=== PATIENT | female | born 1955 | race Caucasian/White ===

== ENCOUNTER 2019-06-01 07:12 | Outpatient (CLI) | payer BC, SELFPAY ==
--- NOTE | 2019-06-01 | US_ITS ---
WS: [id number] RIGHT UPPER QUADRANT ULTRASOUND HISTORY: RUQ PAIN COMPARISON: None available. Liver: 17.0 cm in length. Slightly increased liver size. Poor penetration of the liver may be due to some mild hepatic steatosis. No bile duct dilatation. Gallbladder: Normally distended gallbladder with no stones or wall thickening. CBD: 0.5 cm Pancreas: Poorly visualized. Right kidney: 9.3 cm in length. Normal echogenicity with no mass or hydronephrosis. Aorta and IVC: Unremarkable. No ascites. US/US gall bladder [id number] IMPRESSION: 1. Normal gallbladder. 2. Mild hepatic steatosis and hepatomegaly.
== END 2019-06-01 07:13 | disposition home or self-care (01) ==
LOC: RADOUTREAD 13:09
PROVIDERS: Family Provider Nurse Practitioner Family; Visit Provider Family Medicine
DX: Z76.89 Persons encountering health services in other specified circumstances (principal)

== ENCOUNTER → 2019-11-17 17:00 | Outpatient (BNVA) | payer BC, SELFPAY | PROVIDERS: Family Provider Nurse Practitioner Family; Visit Provider Nurse Practitioner Family | DX: Z12.39 Encounter for other screening for malignant neoplasm of breast (principal); E11.9 Type 2 diabetes mellitus without complications; R29.898 Other symptoms and signs involving the musculoskeletal system; I10 Essential (primary) hypertension; M25.541 Pain in joints of right hand; M25.542 Pain in joints of left hand; K21.9 Gastro-esophageal reflux disease without esophagitis; F41.9 Anxiety disorder, unspecified; F32.9 Major depressive disorder, single episode, unspecified | CPT/HCPCS: 80053; 80061; 81003; 82043; 83036; 84550; 85025; 85651; 86038; 86140; 86431; 87077; 87086; 87186 ==

== ENCOUNTER 2019-12-01 06:00 | Outpatient (RCR) | payer BC, SELFPAY | END 2019-12-08 23:59 | disposition home or self-care (01) | LOC: TOT 06:00 | PROVIDERS: PCP Nurse Practitioner Family; Referring Provider Nurse Practitioner Family; Visit Provider Nurse Practitioner Family | DX: R29.898 Other symptoms and signs involving the musculoskeletal system (principal) | CPT/HCPCS: 97166 ==

== ENCOUNTER 2019-12-09 06:00 | Outpatient (RCR) | payer BC, SELFPAY | END 2020-01-08 23:59 | disposition home or self-care (01) | LOC: TOT 06:00 | PROVIDERS: PCP Nurse Practitioner Family; Referring Provider Nurse Practitioner Family; Visit Provider Nurse Practitioner Family | DX: R29.898 Other symptoms and signs involving the musculoskeletal system (principal) | CPT/HCPCS: 97018; 97035; 97110 ==

== ENCOUNTER 2020-01-03 08:41 | Outpatient (CLI) | payer BC, SELFPAY ==
--- NOTE | 2020-01-03 08:30 | MM_ITS ---
WS: [id number] BILATERAL DIGITAL SCREENING MAMMOGRAPHY WITH CAD CLINICAL INFORMATION: screening mammo; would like in December HISTORY: Screening mammogram. No current complaints. COMPARISON: TECHNIQUE: Bilateral CC and MLO views. FINDINGS: The breasts are composed of heterogeneous fibroglandular density tissue, which can limit the detectio n of small underlying mass lesions. No suspicious mass, asymmetry, calcifications, or architectural d istortion. No evidence of malignancy. MM/[place] [id number] IMPRESSION: BI-RADS: 1-Negative FOLLOW UP: 1 Year Follow-up Recommend return to annual screening mammography.
== END 2020-01-03 08:42 | disposition home or self-care (01) ==
LOC: RADSHAW 08:43
PROVIDERS: PCP Nurse Practitioner Family; Visit Provider Nurse Practitioner Family
DX: Z12.31 Encounter for screening mammogram for malignant neoplasm of breast (principal)
CPT/HCPCS: 77067

== ENCOUNTER 2020-01-09 06:00 | Outpatient (RCR) | payer BC, SELFPAY | END 2020-02-07 23:59 | disposition home or self-care (01) | LOC: TOT 06:00 | PROVIDERS: PCP Nurse Practitioner Family; Referring Provider Nurse Practitioner Family; Visit Provider Nurse Practitioner Family | DX: R29.898 Other symptoms and signs involving the musculoskeletal system (principal) | CPT/HCPCS: 97018; 97035; 97110; L3908 ==

== ENCOUNTER → 2020-08-10 17:26 | Outpatient (BNVA) | payer BC, SELFPAY | PROVIDERS: PCP Nurse Practitioner Family; Visit Provider Nurse Practitioner Family | DX: E11.9 Type 2 diabetes mellitus without complications (principal); M25.50 Pain in unspecified joint; F41.9 Anxiety disorder, unspecified; K21.9 Gastro-esophageal reflux disease without esophagitis; F32.9 Major depressive disorder, single episode, unspecified; I10 Essential (primary) hypertension; Z78.0 Asymptomatic menopausal state | CPT/HCPCS: 80053; 80061; 83036; 84443; 84550; 85025; 85651; 86038; 86140; 86431 ==

== ENCOUNTER → 2021-02-09 09:11 | Outpatient (BNVA) | payer BC, SELFPAY | PROVIDERS: PCP Nurse Practitioner Family; Visit Provider Nurse Practitioner Family | DX: E11.9 Type 2 diabetes mellitus without complications (principal); I10 Essential (primary) hypertension | CPT/HCPCS: 80053; 80061; 83036; 85025 ==

== ENCOUNTER → 2021-06-07 09:59 | Outpatient (BNVA) | payer BC, SELFPAY | PROVIDERS: PCP Nurse Practitioner Family; Visit Provider Nurse Practitioner Family | DX: J10.1 Influenza due to other identified influenza virus with other respiratory manifestations (principal) | CPT/HCPCS: 87400 ==

== ENCOUNTER → 2021-06-25 00:01 | Outpatient (BNVA) | payer OTHER, SELFPAY | PROVIDERS: PCP Nurse Practitioner Family; Visit Provider Nurse Practitioner Family | DX: I10 Essential (primary) hypertension (principal); E11.9 Type 2 diabetes mellitus without complications | CPT/HCPCS: 80053; 80061; 83036; 84443; 85025 ==

== ENCOUNTER → 2021-12-19 08:14 | Outpatient (BNVA) | payer OTHER, SELFPAY | PROVIDERS: PCP Nurse Practitioner Family; Visit Provider Nurse Practitioner Family | DX: E11.9 Type 2 diabetes mellitus without complications (principal); M25.50 Pain in unspecified joint; Z23 Encounter for immunization | CPT/HCPCS: 80053; 80061; 82607; 83036; 83735; 84443; 84550; 85025; 85651; 86038; 86140; 86200; 86431 ==

== ENCOUNTER 2022-02-06 12:42 | Outpatient (CLI) | payer OTHER, SELFPAY ==
--- NOTE | 2022-02-06 12:56 | XR_ITS ---
WS: [id number] SCREENING DEXA SCAN [employer] CLINICAL INFORMATION: Z78.0 - Asymptomatic menopausal state COMPARISON: None. FINDINGS: The L1-L4 bone mineral density measures 1.566 g/cm2. This corresponds to a T score score of 3.2 and Z score of 4.2. Left femoral neck bone mineral density measures 0.945 g/cm2. This corresponds to a T score of -0.5 an d Z score of 0.2. Right femoral neck bone mineral density measures 0.980 g/cm2. This corresponds to a T score -0.2of an d Z score of 0.5. Mean femoral neck bone mineral density measures 0.963 g/cm2. This corresponds to a T score of -0.4 an d Z score of 0.4. XR/XR DEXA axial skeleton* [id number] IMPRESSION: Normal bone mineralization lumbar spine. Normal bone mineralization femoral nec ks. Patient's FRAX calculated 10 year probability for major osteoporotic fracture i s 7.0 % and osteoporotic hip fracture is 0.3%.
--- NOTE | 2022-02-06 13:06 | MM_ITS ---
WS: [id number] BILATERAL 3D TOMOSYNTHESIS DIGITAL SCREENING MAMMOGRAPHY WITH CAD CLINICAL INFORMATION: Z12.31 - Encounter for screening mammogram for malignant ... HISTORY: Screening mammogram. No current complaints. COMPARISON: January 03, 2020 TECHNIQUE: Bilateral CC and MLO views. FINDINGS: The breasts are composed of heterogeneous fibroglandular density tissue, which can limit the detectio n of small underlying mass lesions. No suspicious mass, asymmetry, calcifications, or architectural d istortion. No evidence of malignancy. Incidental punctate calcification LEFT breast. MM/[place] [id number] IMPRESSION: BI-RADS: 2-Benign FOLLOW UP: 1 Year Follow-up Recommend return to annual screening mammography.
== END 2022-02-06 12:43 | disposition home or self-care (01) ==
LOC: RAD 12:43
PROVIDERS: PCP Nurse Practitioner Family; Visit Provider Nurse Practitioner Family
DX: Z12.31 Encounter for screening mammogram for malignant neoplasm of breast (principal); Z78.0 Asymptomatic menopausal state
CPT/HCPCS: 77063; 77067; 77080

== ENCOUNTER → 2022-05-16 11:07 | Outpatient (BNVA) | payer OTHER, SELFPAY | PROVIDERS: PCP Nurse Practitioner Family; Visit Provider Family Medicine | DX: J02.9 Acute pharyngitis, unspecified (principal); H66.93 Otitis media, unspecified, bilateral | CPT/HCPCS: 87071; 87880 ==

== ENCOUNTER → 2022-05-21 08:46 | Outpatient (BNVA) | payer OTHER, SELFPAY | PROVIDERS: PCP Nurse Practitioner Family; Visit Provider Nurse Practitioner Family | DX: Z01.89 Encounter for other specified special examinations (principal) ==

== ENCOUNTER 2022-06-08 13:31 | Emergency (ER) | payer OTHER, SELFPAY ==
[2022-06-08 13:35] VITALS: BP 143/86; PULSE 81; RESP 16; TEMP 36.8; O2SAT 98; BMI 27.1
--- NOTE | 2022-06-08 13:35 | XRR_ITS ---
PROCEDURE INFORMATION: Exam: XR Right Shoulder Exam date and time: 06/08/2022 2:11 PM Age: 66 years old Clinical indication: Injury or trauma; Fall; Blunt trauma (contusions or hematomas); Shoulder; Right; Additional info: Pain TECHNIQUE: Imaging protocol: Radiologic exam of the right shoulder. Views: 2 or more views. COMPARISON: No relevant prior studies available. FINDINGS: Bones/joints: Normal. Soft tissues: Normal. XR/XR shoulder RT min 2V* [id number] IMPRESSION: No acute findings.
--- NOTE | 2022-06-08 13:35 | XRR_ITS ---
PROCEDURE INFORMATION: Exam: XR Cervical Spine Exam date and time: 06/08/2022 2:11 PM Age: 66 years old Clinical indication: Injury or trauma; Fall; Blunt trauma; Additional info: Neck pain TECHNIQUE: Imaging protocol: Radiologic exam of the cervical spine. Views: 2 or 3 views. COMPARISON: No relevant prior studies available. FINDINGS: Bones/joints: There are degenerative changes throughout the visualized spine including marginal osteophyte formations, endplate degenerative changes, and facet arthropathy. Multilevel disc space narrowing. There is straightening of the usual cervical lordosis. Soft tissues: Unremarkable. XR/XR cervical spine 3V* [id number] IMPRESSION: 1. There are degenerative changes as described above. No evidence for acute fracture. 2. Straightening of the usual cervical lordosis. This may be positional in nature however can be seen with muscle spasm as well.
--- NOTE | 2022-06-08 13:35 | CTR_ITS ---
PROCEDURE INFORMATION: Exam: CT Head Without Contrast Exam date and time: 06/08/2022 2:26 PM Age: 66 years old Clinical indication: Injury or trauma; Fall; Blunt trauma (contusions or hematomas); Additional info: Fall/trauma TECHNIQUE: Imaging protocol: Computed tomography of the head without contrast. Radiation optimization: All CT scans at this facility use at least one of these dose optimization techniques: automated exposure control; mA and/or kV adjustment per patient size (includes targeted exams where dose is matched to clinical indication); or iterative reconstruction. REPORTING DATA: Count of CT and Cardiac NM exams in prior 12 months: This patient has received 0 known CTs and 0 known cardiac nuclear medicine studies in the 12 months prior to the current study. COMPARISON: CR (NECK, ) 06/08/2022 2:11 PM RADIATION DOSE METRICS: Total DLP (mGy-cm): 1059.48 FINDINGS: Brain: Periventricular and subcortical white matter low densities are present which at this age likely represent microvascular ischemic change. No evidence for large acute ischemic infarction. Please note acute ischemia can be occult by head CT. No evidence for acute intracranial hemorrhage. Cerebral ventricles: No ventriculomegaly. Paranasal sinuses: There is mucosal thickening of the ethmoid air cells. Small air-fluid levels are seen in the visualized maxillary sinuses. Mastoid air cells: Visualized mastoid air cells are well aerated. Bones/joints: Unremarkable. No acute fracture. Soft tissues: Right frontal soft tissue hematoma. CT/CT head wo con* [id number] IMPRESSION: 1. Right frontal soft tissue hematoma. No evidence for acute intracranial injury. 2. Periventricular and subcortical white matter low densities are present which at this age likely represent microvascular ischemic change. No evidence for acute ischemic infarction.
[2022-06-08 14:08] LABS: Basophils % 0.2 %; Eosinophils % 0.3 %; Hematocrit 36.5 % (37.0-47.0); Hemoglobin 12.3 g/dL (11.5-15.3); Lymphocytes # 1.1 10^3/uL (0.8-4.8); Lymphocytes % 16.8 %; Mean Corpuscular HGB Conc 33.7 g/dL (30.0-36.0); Mean Corpuscular Hemoglobin 30.8 pg (28.0-34.0); Mean Corpuscular Volume 91.3 fl (81-99); Mean Platelet Volume 9.6 fL (7.4-10.4); Monocytes # 0.7 10^3/uL (0.2-0.9); Monocytes % 10.6 %; Neutrophils # 4.52 10^3/uL (1.8-7.7); Neutrophils % 71.8 %; Nucleated Red Blood Cells % 0 %; Platelet Count 277 10^3/cmm (130-400); Red Cell Distribution Width 12.8 % (12.1-15.1); White Blood Count 6.3 10^3/uL (4.0-10.0)
--- NOTE | 2022-06-08 14:16 | W.ED.FALL ---
HPI - Fall General: Chief Complaint: Fall Stated Complaint: RIGHT SIDED PAIN S/P FALL Time Seen by Provider: 06/08/22 13:33 Source: patient Mode of arrival: EMS History of Present Illness: 66-year-old female presents emergency room with complaints of having had a fall. She fell at home she complaining of neck pain and head pain. Patient is unsure whether or not she passed out. She has an abrasion and some swelling in the right frontal area. She is has a c-collar in place she does not use any anticoagulants. Mechanical ground-level fall when she tripped on some slippers. She is also complaining of some right shoulder pain. No obvious deformity. MD complaint: fall Onset (ago): minute(s) Fall from: standing Fall witnessed: yes, by family Place fall occurred: home Loss of consciousness: Unsure Prolonged down time: no Symptoms prior to fall: none Context: tripped/slipped Location of injury: head and neck Location of injury - extremities: Right: shoulder Severity: mild Associated symptoms-after fall: Denies abdominal pain, chest pain, confusion, difficulty walking, headache(s), hematuria, lightheadedness, neck pain, numbness, short of breath, vertigo or weakness Review of Systems Const: Denies: fever(s), chills, body aches, change in appetite, fatigue or malaise Card: Denies: chest pain, palpitations, irregular heart rhythm or lightheadedness Resp: Denies: dyspnea, productive cough or non-productive cough GI: Denies: abdominal pain : Denies: hematuria Musc: Denies: neck pain Skin/Breast: Denies: rash or pruritus Neuro: Denies: headache(s), difficulty walking, vertigo or confusion PFSH ED PFSH: Medical History Hyperlipidemia Hypertension Metabolic syndrome NSAID long-term use Osteoarthritis Osteoarthritis of hands, bilateral Type 2 diabetes mellitus Surgical History History of partial hysterectomy Hx of total knee replacement bilateral Family History Mother Cancer Family/Other Diabetes Hypertension Social History Smoking and tobacco status: former smoker (50 years ago) Second hand smoke exposure: No Smoking risk assessment/counseling performed?: No Alcohol intake: never Desire information about alcohol rehabilitation?: No Counseling given: No Desire information about substance/drug rehabilitation?: No Counseling given: No Adopted: No Caregiver/support person: No Lives independently: Yes Household members: spouse Housing: House Marital status: service: No Current occupational status: employed 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 Resp: COMMON NORMALS: normal respiratory effort, No retractions, No use of accessory muscles and clear to auscultation bilaterally AUSCULTATION: clear to auscultation bilaterally Cardio: COMMON NORMALS: regular rate, regular rhythm and No murmurs present (Cardio) RATE: regular rate RHYTHM: regular rhythm GI: COMMON NORMALS: Soft to palpation and No hepatosplenomegaly present AUSCULTATION: Yes normoactive bowel sounds PALPATION: Yes Soft to palpation, No Tenderness to palpation present (GI), No Guarding due to palpation present (GI) and Yes No hepatosplenomegaly present Extremity: COMMON NORMALS: normal to inspection, capillary refill normal, no clubbing, cyanosis or edema, no calf tenderness and no pedal edema Neuro: SENSORIUM/ORIENTATION: Yes oriented to person, Yes oriented to place and Yes oriented to time Skin: COMMON NORMALS: no rashes or lesions noted GENERAL SKIN EXAM: no rashes or lesions noted Course Vital Signs: Vital signs: Vital Signs Temperature 98.2 F 06/08/22 13:35 Pulse Rate 76 06/08/22 14:47 Respiratory Rate 16 06/08/22 13:35 Blood Pressure 143/86 06/08/22 13:35 Pulse Oximetry 100 06/08/22 14:47 Oxygen Delivery Me thod 06/08/22 13:35 MDM - Fall Medical Decision Making Labs and imaging reviewed no fractures no acute intracranial bleed discharge patient home anti-inflammatories as needed use tizanidine and lieu of cyclobenzaprine. Recheck with primary care if not improving. Anticipate will have increased discomfort from the fall tomorrow. Medical Records I reviewed the patient's medical records. Lab Data I reviewed the patient's lab results. 06/08/22 13:40 06/08/22 13:40 Radiology Impressions Cervical Spine X-Ray 06/08/22 13:35 IMPRESSION: 1. There are degenerative changes as described above. No evidence for acute fracture. 2. Straightening of the usual cervical lordosis. This may be positional in nature however can be seen with muscle spasm as well. Head CT 06/08/22 13:35 IMPRESSION: 1. Right frontal soft tissue hematoma. No evidence for acute intracranial injury. 2. Periventricular and subcortical white matter low densities are present which at this age likely represent microvascular ischemic change. No evidence for acute ischemic infarction. Shoulder X-Ray 06/08/22 13:35 IMPRESSION: No acute findings. Laboratory Results WBC 6.3 10^3/uL (4.0-10.0) 06/08/22 13:40 RBC 4.00 10^6/uL (4.1-5.3) L 06/08/22 13:40 Hgb 12.3 g/dL (11.5-15.3) 06/08/22 13:40 Hct 36.5 % (37.0-47.0) L 06/08/22 13:40 MCV 91.3 fl (81-99) 06/08/22 13:40 MCH 30.8 pg (28.0-34.0) 06/08/22 13:40 MCHC 33.7 g/dL (30.0-36.0) 06/08/22 13:40 RDW 12.8 % (12.1-15.1) 06/08/22 13:40 Plt Count 277 10^3/cmm (130-400) 06/08/22 13:40 MPV 9.6 fL (7.4-10.4) 06/08/22 13:40 Neut % (Auto) 71.8 % 06/08/22 13:40 Lymph % (Auto) 16.8 % 06/08/22 13:40 Briscoe % (Auto) 10.6 % 06/08/22 13:40 Eos % (Auto) 0.3 % 06/08/22 13:40 Baso % (Auto) 0.2 % 06/08/22 13:40 Neut # (Auto) 4.52 10^3/uL (1.8-7.7) 06/08/22 13:40 Lymph # (Auto) 1.1 10^3/uL (0.8-4.8) 06/08/22 13:40 [place]iscoe # (Auto) 0.7 10^3/uL (0.2-0.9) 06/08/22 13:40 Eos # (Auto) 0.0 10^3/uL (0.0-0.8) 06/08/22 13:40 Baso # (Auto) 0.0 10^3/uL (0.0-0.1) 06/08/22 13:40 Nucleated RBC % (auto) 0 % 06/08/22 13:40 Nucleated RBCs # 0.0 /100WBC 06/08/22 13:40 Sodium 134 mmol/L (136-145) L 06/08/22 13:40 Potassium 3.3 mmol/L (3.5-5.1) L 06/08/22 13:40 Chloride 95 mmol/L (98-107) L 06/08/22 13:40 Carbon Dioxide 27 mmol/L (22-29) 06/08/22 13:40 Anion Gap 15.3 (5-19) 06/08/22 13:40 BUN 19 mg/dL (8-23) 06/08/22 13:40 Creatinine 1.0 mg/dL (0.5-0.9) H 06/08/22 13:40 GFR Calculation 55.8 mL/min (90-130) L 06/08/22 13:40 Glucose 87 mg/dL (65-115) 06/08/22 13:40 Calculated Osmolality 280 mOsm/kg (285-295) L 06/08/22 13:40 Calcium 8.9 mg/dL (8.5-10.5) 06/08/22 13:40 Total Bilirubin 0.3 mg/dL (0.15-1.2) 06/08/22 13:40 AST 103 U/L (0-32) H 06/08/22 13:40 ALT 126 U/L (0-33) H 06/08/22 13:40 Alkaline Phosphatase 96 U/L (35-105) 06/08/22 13:40 Total Protein 6.8 g/dL (6.6-8.7) 06/08/22 13:40 Albumin 3.8 g/dL (3.5-5.2) 06/08/22 13:40 Globulin 3.0 g/dL (1.3-4.6) 06/08/22 13:40 Discharge Plan Discharge Patient Disposition: Home Clinical Impression: Fall Condition: Stable Prescriptions: New tizanidine 4 mg tablet 4 mg PO Q6H PRN (Reason: muscle spasticity) Qty: 14 0RF Rx Instructions: do not exceed 3 doses per 24 hrs -use instead of cyclobenzaprine No Action omeprazole 20 mg capsule,delayed release(DR/EC) 20 mg PO BID Qty: 60 5RF celecoxib 200 mg capsule See Rx Instructions .ROUTE .COMPLEX Qty: 60 5RF Hold Instructions: Doctor's Order Dose Instruction: Take 1 capsule by mouth twice daily Rx Instructions: Take 1 capsule by mouth twice daily indapamide 2.5 mg tablet 2.5 mg PO QAM Qty: 30 5RF cyclobenzaprine 10 mg tablet See Rx Instructions .ROUTE .COMPLEX Qty: 30 5RF Dose Instruction: TAKE 1/2 TO 1 (ONE-HALF TO ONE) TABLET BY MOUTH ONCE DAILY MAY CAUSE DROWSINESS Rx Instructions: TAKE 1/2 TO 1 (ONE-HALF TO ONE) TABLET BY MOUTH ONCE DAILY MAY CAUSE DROWSINESS venlafaxine 75 mg capsule,extended release 24hr 75 mg PO DAILY Qty: 30 5RF Rx Instructions: take with your 150mg capsule to equal 225mg daily venlafaxine 150 mg capsule,extended release 24hr See Rx Instructions .ROUTE .COMPLEX Qty: 30 5RF Dose Instruction: Take 1 capsule by mouth once daily Rx Instructions: Take 1 capsule by mouth once daily ondansetron HCl 4 mg tablet 4 mg PO TID PRN (Reason: nausea and vomiting) Qty: 60 0RF diclofenac sodium 1 % gel 2 g topical QID Qty: 100 2RF Rx Instructions: apply to affected area as needed azithromycin [Zithromax Z-Merritt] 250 mg tablet See Rx Instructions PO .COMPLEX Qty: 6 0RF Rx Instructions: take 500 mg today (day 1), then 250 mg for 4 days (days 2-5) PO lisinopril 5 mg tablet See Rx Instructions .ROUTE .COMPLEX Qty: 30 2RF Dose Instruction: Take 1 tablet by mouth once daily Rx Instructions: Take 1 tablet by mouth once daily levocetirizine [Xyzal] 5 mg tablet 5 mg PO DAILY 90 Days Qty: 90 0RF Ozempic 0.25 mg or 0.5 mg(2 mg/1.5 mL) pen injector See Rx Instructions .ROUTE .COMPLEX Qty: 3 2RF Dose Instruction: INJECT ONE MG (0.8 ML) SUBCUTANEOUSLY every week Rx Instructions: INJECT ONE MG (0.8 ML) SUBCUTANEOUSLY every week Discharge Orders: Discharge ED (Routine); Ordered 06/08/22 Ordered By: Bipin [place] Referrals: Katharine Gustafson FNP [Primary Care Provider] - Discharge Diet: Usual diet Discharge Activity: Resume usual activity Patient Instructions: Opioid Safety, Pain Management Activity Restrictions/Additional Instructions: You are seen today after a fall at home. CT of the head showed a hematoma but did not show any acute intracranial bleeding plain x-rays were negative for any fracture. Recommend that you use this Celebrex that you were previously prescribed you can use the tizanidine instead of cyclobenzaprine over the next few days. Because of the location of the hematoma where you hit the right side of your head it is likely that you will get bruising and significant swelling around the right eye over the next day or 2, recommend ice to the area. Follow-up with your primary care doctor as needed. Coding Level of Care Code ED Quarrying Specialist for Miranda Quintanilla
[2022-06-08 14:47] VITALS: PULSE 76; O2SAT 100
[2022-06-08 15:00] LABS: Alanine Aminotransferase 126 U/L (0-33); Albumin Level 3.8 g/dL (3.5-5.2); Alkaline Phosphatase 96 U/L (35-105); Aspartate Amino Transferase 103 U/L (0-32); Blood Urea Nitrogen 19 mg/dL (8-23); Calcium 8.9 mg/dL (8.5-10.5); Carbon Dioxide 27 mmol/L (22-29); Chloride 95 mmol/L (98-107); Creatinine Clr Calc Pharmacy 53.1156; Glomerular Filtration Rate 55.8 mL/min (90-130); Glucose 87 mg/dL (65-115); Osmolality Calculated 280 mOsm/kg (285-295); Sodium 134 mmol/L (136-145); Total Bilirubin 0.3 mg/dL (0.15-1.2); Total Protein 6.8 g/dL (6.6-8.7)
[2022-06-08 15:09] LABS: Anion Gap 15.3 (5-19); Potassium 3.3 mmol/L (3.5-5.1)
== END 2022-06-08 14:52 | disposition home or self-care (01) ==
PROVIDERS: Emergency Provider Family Medicine; PCP Nurse Practitioner Family
DX: S00.81XA Abrasion of other part of head, initial encounter (principal); Z87.891 Personal history of nicotine dependence; E78.5 Hyperlipidemia, unspecified; I10 Essential (primary) hypertension; E11.9 Type 2 diabetes mellitus without complications; W19.XXXA Unspecified fall, initial encounter
CPT/HCPCS: 70450; 72040; 73030; 80053; 85025; 99284

== ENCOUNTER → 2022-06-28 12:50 | Outpatient (BNVA) | payer OTHER, SELFPAY | PROVIDERS: PCP Nurse Practitioner Family; Visit Provider Nurse Practitioner Family | DX: E11.9 Type 2 diabetes mellitus without complications (principal) | CPT/HCPCS: 80053; 82607; 84443; 85025 ==

== ENCOUNTER → 2022-07-25 08:55 | Outpatient (BNVA) | payer OTHER, SELFPAY | PROVIDERS: PCP Nurse Practitioner Family; Visit Provider Nurse Practitioner Family | DX: M25.561 Pain in right knee (principal); I10 Essential (primary) hypertension; Z96.651 Presence of right artificial knee joint | CPT/HCPCS: 73562 ==

== ENCOUNTER → 2022-08-09 09:00 | Outpatient (BNVA) | payer OTHER, SELFPAY | PROVIDERS: PCP Nurse Practitioner Family; Visit Provider Nurse Practitioner Family | DX: I10 Essential (primary) hypertension (principal) | CPT/HCPCS: 80048 ==

== ENCOUNTER 2022-10-24 16:59 | Outpatient (CLI) | payer MEDICARE, SELFPAY ==
--- NOTE | 2022-10-24 17:16 | XRR_ITS ---
PROCEDURE INFORMATION: Exam: XR Left Knee Exam date and time: 10/24/2022 5:17 PM Age: 67 years old Clinical indication: Pain; Left; Prior surgery; Surgery date: 6+ months; Surgery type: Total knee; Patient HX: Twisted knee last week; Additional info: M25.569 - pain in unspecified knee TECHNIQUE: Imaging protocol: Radiologic exam of the left knee. Views: 3 views. COMPARISON: No relevant prior studies available. FINDINGS: Bones/joints: Intact well-aligned total knee prosthesis. No sign of loosening. No acute fracture. No definite joint effusion. Soft tissues: Normal. XR/XR knee LT 3V* [id number] IMPRESSION: Intact well-aligned total knee prosthesis. No acute findings.
== END 2022-10-24 17:00 | disposition home or self-care (01) ==
PROVIDERS: PCP Nurse Practitioner Family; Visit Provider Nurse Practitioner Family
DX: M25.562 Pain in left knee (principal); Z96.652 Presence of left artificial knee joint
CPT/HCPCS: 73562

== ENCOUNTER → 2022-11-19 08:40 | Outpatient (BNVA) | payer MEDICARE, SELFPAY | PROVIDERS: PCP Nurse Practitioner Family; Visit Provider Dermatology | DX: Z01.89 Encounter for other specified special examinations (principal) ==

== ENCOUNTER → 2023-01-21 09:14 | Outpatient (BNVA) | payer MEDICARE, SELFPAY | PROVIDERS: PCP Nurse Practitioner Family; Visit Provider Nurse Practitioner Family | DX: M25.512 Pain in left shoulder (principal); M19.012 Primary osteoarthritis, left shoulder | CPT/HCPCS: 73030 ==

== ENCOUNTER 2023-02-12 13:05 | Outpatient (CLI) | payer MEDICARE, SELFPAY ==
--- NOTE | 2023-02-12 13:00 | MR_ITS ---
WS: [id number] MRI LEFT SHOULDER NONCONTRAST TECHNIQUE: Sagittal T2, coronal T1, T2 and proton density imaging. Axial gradient PDE imaging. CLINICAL INFORMATION: M25.512 - Pain in left shoulder COMPARISON: None. FINDINGS: Moderate to advanced degenerative arthritis LEFT AC joint with a small amount of subacromial fluid an d edema. Subchondral cystic change at the AC joint with synovial thickening. Moderate downsloping acr omion with subacromial spurring. Impingement on the distal supraspinatus. Chronic thinning of the distal supraspinatus with tendinopathy. Tiny insertional tear. Normal infrasp inatus. Normal teres minor. Biceps tendon appears intact within the bicipital groove. Subscapularis tendon appears intact distall y. Chronic irregularity of the glenoid labrum. Biceps labral anchor appears intact. Intra-articular b iceps tendon appears intact. Subchondral cystic change of on the glenoid. Moderate to advanced degenerative narrowing of the glenohumeral articulation.. Edema within the subsc apularis muscle belly may be due to recent injury or muscle strain. Small subcoracoid effusion. IMPRESSION: 1. Moderate to advanced degenerative arthritis AC joint with diffuse edema and subchondral cystic ch ryan. 2. Moderate downsloping acromion with impingement on the distal supraspinatus and subacromial spurri ng with tendinopathy. Tiny insertional supraspinatus tear. 3. Rotator cuff is intact. No tendon retraction. 4. Normal biceps tendon in the bicipital groove. 5. Advanced degenerative narrowing at the glenohumeral articulation. 6. Edema in the subscapularis muscle belly nonspecific may be due to muscle strain or possibly infla mmatory. Distal tendon appears intact.
== END 2023-02-12 13:06 | disposition home or self-care (01) ==
LOC: RAD 13:05
PROVIDERS: PCP Nurse Practitioner Family; Visit Provider Nurse Practitioner Family
DX: M19.012 Primary osteoarthritis, left shoulder (principal); M75.42 Impingement syndrome of left shoulder
CPT/HCPCS: 73221

== ENCOUNTER 2023-02-12 13:30 | Outpatient (CLI) | payer MEDICARE, SELFPAY | END 2023-02-12 13:31 | disposition home or self-care (01) | LOC: SLEEP 02-18 15:57 | PROVIDERS: PCP Nurse Practitioner Family; Visit Provider Nurse Practitioner Family | DX: G47.10 Hypersomnia, unspecified (principal); G47.36 Sleep related hypoventilation in conditions classified elsewhere; R06.83 Snoring | CPT/HCPCS: G0399 ==

== ENCOUNTER → 2023-05-20 09:33 | Outpatient (BNVA) | payer SELFPAY | PROVIDERS: PCP Nurse Practitioner Family; Visit Provider Nurse Practitioner Family | DX: Z01.89 Encounter for other specified special examinations (principal) ==

== ENCOUNTER 2023-06-24 09:02 | Outpatient (CLI) | payer MEDICARE, SELFPAY ==
--- NOTE | 2023-06-24 09:00 | MM_ITS ---
WS: [id number] VIEWS: MLO and CC views both breasts. 3D digital tomosynthesis is also included in this exam. Comparison made with prior exam of 01/12/2010, 12/02/2011, 12/21/2013, 12/26/2014, 12/18/2015, , 01/03/2020, 02/06/2022.. Findings: There was no sign of mass, architectural distortion or suspicious calcification in either breast. The breasts are heterogeneously dense which may obscure small masses Impression: MM/[place] [id number] BI-RADS: 2-Benign finding. 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
== END 2023-06-24 09:03 | disposition home or self-care (01) ==
LOC: MOBLMAM 09:17
PROVIDERS: PCP Nurse Practitioner Family; Visit Provider Nurse Practitioner Family
DX: Z12.31 Encounter for screening mammogram for malignant neoplasm of breast (principal)
CPT/HCPCS: 77063; 77067

== ENCOUNTER 2023-07-03 20:00 | Outpatient (CLI) | payer MEDICARE, SELFPAY | END 2023-07-03 20:01 | disposition home or self-care (01) | LOC: SLEEP 07-04 06:11 | PROVIDERS: PCP Nurse Practitioner Family; Visit Provider Nurse Practitioner Family | DX: G47.10 Hypersomnia, unspecified (principal) | CPT/HCPCS: 95810 ==

== ENCOUNTER → 2023-07-07 08:41 | Outpatient (BNVA) | payer MEDICARE, SELFPAY | PROVIDERS: PCP Nurse Practitioner Family; Visit Provider Nurse Practitioner Family | DX: M25.562 Pain in left knee (principal) | CPT/HCPCS: 73562 ==

== ENCOUNTER 2023-11-28 10:56 | Outpatient (CLI) | payer MEDICARE, SELFPAY ==
--- NOTE | 2023-11-28 11:00 | US_ITS ---
WS: [id number] RIGHT UPPER QUADRANT ULTRASOUND HISTORY: R10.11 - Right upper quadrant pain COMPARISON: 06/01/2019 Liver: 12.4 cm in length. Normal size liver and echogenicity. No bile duct dilatation or mass. Portal Vein: Normal hepatopetal flow with monophasic waveform. Gallbladder: Normally distended with multiple stones shadowing. No pericholecystic fluid. No wall thi ckening. CBD: 0.6 cm Pancreas: Normal size and echogenicity. Right kidney: 9.5 cm in length. Normal size and echogenicity. No hydronephrosis or mass. Aorta and IVC: Unremarkable abdominal aorta and IVC. No ascites. US/US gall bladder [id number] IMPRESSION: 1. Cholelithiasis without acute cholecystitis. Gallstones are new since 020. 2. No bile duct dilatation.
== END 2023-11-28 10:57 | disposition home or self-care (01) ==
LOC: RAD 10:56
PROVIDERS: PCP Nurse Practitioner Family; Visit Provider Nurse Practitioner Family
DX: R10.11 Right upper quadrant pain (principal); K80.20 Calculus of gallbladder without cholecystitis without obstruction
CPT/HCPCS: 76705

== ENCOUNTER → 2023-12-03 15:29 | Outpatient (BNVA) | payer MEDICARE, SELFPAY | PROVIDERS: PCP Nurse Practitioner Family; Visit Provider Nurse Practitioner Family | DX: R30.0 Dysuria (principal) | CPT/HCPCS: 81000 ==

== ENCOUNTER → 2023-12-10 09:02 | Outpatient (BNVA) | payer MEDICARE, SELFPAY | PROVIDERS: PCP Nurse Practitioner Family; Visit Provider Nurse Practitioner Family | DX: R74.8 Abnormal levels of other serum enzymes (principal) | CPT/HCPCS: 80053 ==

== ENCOUNTER → 2023-12-15 11:20 | Outpatient (BNVA) | payer MEDICARE, SELFPAY | PROVIDERS: PCP Nurse Practitioner Family; Visit Provider Nurse Practitioner Family | DX: R53.83 Other fatigue (principal); R89.9 Unspecified abnormal finding in specimens from other organs, systems and tissues; R79.89 Other specified abnormal findings of blood chemistry | CPT/HCPCS: 80053; 85025; 85610; 86705; 86706; 86709; 86803; 87340 ==

== ENCOUNTER → 2024-01-21 10:45 | Outpatient (BNVA) | payer MEDICARE, SELFPAY | PROVIDERS: PCP Nurse Practitioner Family; Referring Provider Nurse Practitioner Family; Visit Provider Nurse Practitioner Family | DX: L56.8 Other specified acute skin changes due to ultraviolet radiation (principal); L91.8 Other hypertrophic disorders of the skin; L82.0 Inflamed seborrheic keratosis; L81.4 Other melanin hyperpigmentation; L57.8 Other skin changes due to chronic exposure to nonionizing radiation | CPT/HCPCS: 17000; 17110; 99203 ==

== ENCOUNTER → 2024-08-18 14:37 | Outpatient (BNVA) | payer MEDICARE, SELFPAY | PROVIDERS: PCP Nurse Practitioner Family; Visit Provider Nurse Practitioner Family | DX: L81.4 Other melanin hyperpigmentation (principal); L57.8 Other skin changes due to chronic exposure to nonionizing radiation; X32.XXXA Exposure to sunlight, initial encounter; L82.0 Inflamed seborrheic keratosis; L29.89 Other pruritus | CPT/HCPCS: 11102; 17110; 99213 ==

== ENCOUNTER → 2025-01-20 10:44 | Outpatient (BNVA) | payer MEDICARE, SELFPAY | PROVIDERS: PCP Nurse Practitioner Family; Visit Provider Nurse Practitioner Family | DX: L81.4 Other melanin hyperpigmentation (principal); L57.8 Other skin changes due to chronic exposure to nonionizing radiation; X32.XXXA Exposure to sunlight, initial encounter; L82.0 Inflamed seborrheic keratosis; R20.8 Other disturbances of skin sensation; L53.8 Other specified erythematous conditions | CPT/HCPCS: 17110; 99213 ==